=== PATIENT | female | born 1980 | race Caucasian/White ===

== ENCOUNTER 2016-06-18 16:20 | Emergency (ER) | payer OTHER, MEDICAID ==
[2016-06-18] MEDS ORDERED: SODIUM CHLORIDE 0.9% 1,000 ML ONE (17:25)
== END 2016-06-18 18:56 | disposition home or self-care (01) ==
LOC: ER 16:20
DX: R07.2 Precordial pain (principal); R51 Headache; R07.89 Other chest pain; F17.200 Nicotine dependence, unspecified, uncomplicated
CPT/HCPCS: 36415; 71010; 80053; 82553; 84484; 84703; 85025; 85379; 93005; 96360